=== PATIENT | female | born 1975 | race Caucasian/White ===

== ENCOUNTER 2023-12-22 19:18 | Emergency (ER) | payer SELFPAY ==
[2023-12-22 19:28] VITALS: BP 106/71
[2023-12-22 19:46] LABS: % Basophils 1.5 % (0-2); % Eosinophils 3.3 % (0-6); % Immature Granulocytes 0.2 % (0-0.5); % Lymphocytes 25.9 % (20.5-51.1); % Monocytes 8.9 % (1.7-9.3); % Neutrophils 60.2 % (42.2-75.2); Absolute Basophils 0.1 10^3/uL (0-0.2); Absolute Eosinophils 0.2 10^3/uL (0-0.7); Absolute Lymphocytes 1.2 10^3/uL (1.2-3.4); Absolute Monocytes 0.4 10^3/uL (0.1-0.6); Absolute Neutrophils 2.8 10^3/uL (1.4-6.5); Hematocrit 35.9 % (37.0-47.0); Hemoglobin 12.6 g/dL (12.0-16.0); Mean Corp Hgb Conc. 35.1 g/dL (33.0-37.0); Mean Corpuscular Hgb 31.6 pg (27.0-31.0); Mean Platelet Volume 9.9 fL (7.4-10.4); Nucleated Red Blood Cells % 0 %; Platelet Count 355 10^3/uL (130-400); Red Blood Cell Count 3.99 10^6/uL (4.20-5.40); Red Cell Dist. Width 12.2 % (11.5-14.5); White Blood Cell Count 4.6 10^3/uL (4.8-10.8)
[2023-12-22 19:59] LABS: ALT (SGPT) 15 U/L (0-35); AST (SGOT) 23 U/L (14-36); Albumin 4.5 g/dl (3.5-5.0); Alkaline Phosphatase 78 U/L (38-126); Blood Urea Nitrogen 17 mg/dl (7-17); Calcium 9.7 mg/dl (8.4-10.2); Carbon Dioxide 26 mmol/L (22-30); Chloride 103 mmol/L (98-107); Glucose 106 mg/dl (70-99); Lipase 90 U/L (23-300); Potassium 4.4 mmol/L (3.5-5.1); Sodium 135 mmol/L (135-145); Total Bilirubin 0.3 mg/dl (0.2-1.3); eGFR > 60.00
[2023-12-22 20:00] LABS: HCG, Serum Qualitative Screen Negative
--- NOTE | 2023-12-22 21:39 | ED.GENMED ---
History of Present Illness
General
Chief Complaint: Abdominal Pain
Time Seen by Provider: 12/22/23 21:09
Travel History
Have you had any contact with someone who has COVID-19?: No
Do you have any symptoms of coronavirus? Fever > 100 degrees, chills, cough, shortness of breath, sore throat, loss of taste or smell, muscle aches, or headache?: No
History of Present Illness
History of Present Illness:
48-year-old female with no significant past medical history presents to the emergency department for evaluation of intermittent left lower quadrant abdominal pain for the past 2 weeks. Pain radiated toward the back. States that incidentally began
after chiropractic visit 2 weeks ago, had occasional mild abdominal pains over the past several weeks but nothing as severe as today. Denies any nausea, vomiting, diarrhea, lower urinary tract voiding symptoms, or fevers. Did have night sweats on
several occasions this week. No history of intra-abdominal surgeries
Past History
Past History
ED Past Medical History: None
ED Past Surgical History: None
Social History
Tobacco: Former smoker
Alcohol: None
Drug: None
Living: with family
Review of Systems
Review of Systems
Allergies reviewed?: Yes
All Other Systems: ROS reviewed and negative except as documented in HPI and ROS
Phy Exam
Physical Exam
Physical Exam:
GEN: Well appearing, NAD, WDWN
Eyes: PERRLA, EOMs intact, no scleral icterus
HENT: NCAT, oral mucosa moist
Lungs: CTAB, no wheezes, rales, rhonchi, normal chest wall excursion
Cardiac: RRR, no M/R/G, no peripheral edema. Radial pulses 2+ bilat
Abdomen: S, NT, ND, NABS, no masses or hepatosplenomegaly
Neuro: AO x 3
MSK: No gross deformity or ecchymosis.
Skin: No rashes, petechiae. Normal color, no pallor or jaundice.
Psych: Calm, cooperative, proper hygiene
Course
Orders/Labs/Results
Orders:
Orders
12/22/23 19:32
Test Result ONCE
12/22/23 19:39
Comprehensive Metabolic Panel Urgent
HCG, Serum Qualitative Screen Urgent
Lipase Urgent
12/22/23 19:40
Complete Blood Count/With Diff Urgent
12/22/23 21:34
Urinalysis Reflex To Culture Urgent
Date Specimen was Collected: 12/22/23
Time Specimen was Collected: 21:32
Urine Microscopic Reflex Cult Urgent
12/22/23 22:07
CT Abd/pel Without Iv Or Oral Urgent
Comment:
Reason For Exam: L flank pain, hematuria
Abnormal Lab Results
12/22/23 12/22/23 12/22/23
19:39 19:40 21:34
WBC 4.6 L 10^3/uL
(4.8-10.8)
RBC 3.99 L 10^6/uL
(4.20-5.40)
Hct 35.9 L %
(37.0-47.0)
MCH 31.6 H pg
(27.0-31.0)
Creatinine 1.1 H mg/dL
(0.6-1.0)
Glucose 106 H mg/dl
(70-99)
Ur Occult Blood Reflex 2+ A
(Negative)
Leukocyte Esterase Rfl Trace A
(Negative)
Urine Bacteria (Reflex) Few A
(Negative)
12/22/23 19:40
12/22/23 19:39
Vital Signs
Initial and Last Documented VS:
Initial Vital Signs
Temp Pulse Resp BP Pulse Ox
97.9 F 67 14 106/71 100
12/22/23 19:28 12/22/23 19:28 12/22/23 19:28 12/22/23 19:28 12/22/23 19:28
Last Documented Vital Signs
Temp Pulse Resp BP Pulse Ox
98.5 F 65 18 114/76 98
12/23/23 00:09 12/23/23 00:09 12/23/23 00:09 12/23/23 00:09 12/23/23 00:09
MDM/Problems Addressed
MDM/Problems Addressed:
Unfortunately the patient is identified to have innumerable sites of lymphadenopathy within the abdomen. Her abdominal pain in all likelihood is due to the large para-aortic node on the left side. She does have some systemic signs with night
sweats however has no significant lab abnormalities. I discussed the case with hematology and oncology to facilitate her outpatient follow-up, will likely need further workup and biopsies for more definitive care. Complicating matters is that she
does not have a primary care physician, recommend she contact her insurance company but may also try the outpatient family medicine residency
*Critical Care Note
Total Time (30-74mins, 75-104mins- exclusive of procedures): Not Applicable
ED Attending Note
-
Portions of this chart may have been created with voice recognition software.� Occasional wrong word or��sound alike� substitutions may have occurred due to the inherent limitations of voice recognition software.
Discharge Plan
Departure
Patient Disposition: Home (Routine Discharge)
Date of Disposition: 12/22/23
Time of Disposition: 23:58
Patient with high blood pressure during this ER visit?: No
Discharge Problem:
Intra-abdominal lymphadenopathy
Prescriptions:
No Action
No Current Medications
0
Referrals:
Rob Siddiqi, [Active] -
NONE,* [Family Provider] -
Activity Restrictions/Additional Instructions:
Your CT scan shows numerous enlarged intra-abdominal lymph nodes the largest of which is to the left side of your aorta and may explain your pain. These findings are highly concerning for lymphoma. He will need to follow-up with the electronic game developer
listed on your paperwork as well as with the listed family medicine residency clinic or a primary care physician of your choice. He will likely need further diagnostic tests that are not limited to further blood work or potentially biopsies. It
was also identified that you have a large lesion in the right lung that may represent a benign lesion such as a lipoma or a cancerous lesion. This will also require further workup
[facility]
[address]
[place] [address]
[phone]
Interventions
Interventions:
*Risk Screen - Suicide Last Done: 12/22/23 19:28
*General Assessment Last Done: 12/22/23 19:28
*Neglect/Abuse Screening Last Done: 12/22/23 19:28
ED- Fall Risk Assessment Last Done: 12/22/23 21:28
*Nursing Disposition Last Done: 12/23/23 00:13
NE-Ryethr-Akpmbrgwxl Assessment Last Done: 12/22/23 21:28
Discharge Date and Time
Discharge Date/Time: 12/23/23 00:13
Print Language: WELSH
[2023-12-22 21:44] LABS: Urine Albumin Negative (Neg - Trace); Urine Bilirubin Negative (Negative); Urine Character Clear (Clear); Urine Color Yellow; Urine Glucose Negative (Negative); Urine Ketone Negative (Negative); Urine Leukocyte Trace (Negative); Urine Nitrite Negative (Negative); Urine Occult Blood 2+ (Negative); Urine Urobilinogen Negative (Neg - 1+); Urine pH 6.5 (5.0-9.0)
[2023-12-22 21:54] LABS: Urine Bacteria Few (Negative); Urine Red Blood Cell None Seen /HPF (0-2); Urine White Cell 0-2 /HPF (0-5)
[2023-12-23 00:09] VITALS: BP 114/76
== END 2023-12-23 00:13 | disposition home or self-care (01) ==
LOC: EMR 19:18
PROVIDERS: Emergency Medicine; Physician Assistant; EMERGENCY PHYSICIAN Emergency Medicine
DX: R59.0 Localized enlarged lymph nodes (principal); Z87.891 Personal history of nicotine dependence
CPT/HCPCS: 99284; 74176; 80053; 81003; 81015; 83690; 84703; 85025

== ENCOUNTER → 2024-02-19 10:09 | Outpatient (REF) | payer SELFPAY | LOC: RCS 10:09 | PROVIDERS: ATTENDING PHYSICIAN Internal Medicine Hematology & Oncology | DX: R59.1 Generalized enlarged lymph nodes (principal); C83.38 Diffuse large B-cell lymphoma, lymph nodes of multiple sites | CPT/HCPCS: 93306 ==

== ENCOUNTER → 2024-02-21 07:22 | Outpatient (REF) | payer SELFPAY ==
[2024-02-21 07:49] VITALS: BP 107/79; BP_SYST 89
[2024-02-21 09:18] VITALS: BP 103/75; BP_SYST 73
== END ==
LOC: RADI 07:22
PROVIDERS: ATTENDING PHYSICIAN Internal Medicine Hematology & Oncology
DX: C83.31 Diffuse large B-cell lymphoma, lymph nodes of head, face, and neck (principal)
CPT/HCPCS: 88305; 38505; 76942; 88333; 88341; 88342; 88365; 99152

== ENCOUNTER → 2024-02-27 08:29 | Outpatient (REF) | payer SELFPAY ==
[2024-02-27 08:51] VITALS: BP 129/85; BP_SYST 85
[2024-02-27] MEDS: ANCEF 10 IV (09:17)
[2024-02-27 10:25] VITALS: BP 131/80; BP_SYST 94
[2024-02-27 10:30] VITALS: BP 127/81; BP_SYST 77
[2024-02-27 10:45] VITALS: BP 132/90; BP_SYST 82
[2024-02-27 10:55] VITALS: BP 132/90
== END ==
LOC: RADI 08:29
PROVIDERS: ATTENDING PHYSICIAN Internal Medicine Hematology & Oncology
DX: C83.38 Diffuse large B-cell lymphoma, lymph nodes of multiple sites (principal)
CPT/HCPCS: 36561; 76937; 77001; 99152; 99153; C1788

== ENCOUNTER 2024-03-20 08:49 | Outpatient (RCR) | payer SELFPAY ==
[2024-02-26 11:18] LABS: % Basophils 0.4 % (0-2); % Eosinophils 0.7 % (0-6); % Immature Granulocytes 2.2 % (0-0.5); % Lymphocytes 12.4 % (20.5-51.1); % Monocytes 6.3 % (1.7-9.3); Absolute Eosinophils 0.1 10^3/uL (0-0.7); Absolute Immature Granulocytes 0.2 10^3/uL (0-0.05); Absolute Lymphocytes 1.3 10^3/uL (1.2-3.4); Absolute Monocytes 0.7 10^3/uL (0.1-0.6); Absolute Neutrophils 8.1 10^3/uL (1.4-6.5); Hematocrit 33.4 % (37.0-47.0); Hemoglobin 10.8 g/dL (12.0-16.0); Mean Corp Hgb Conc. 32.3 g/dL (33.0-37.0); Mean Corpuscular Hgb 29.2 pg (27.0-31.0); Mean Corpuscular Volume 90.3 fL (81.0-99.0); Nucleated Red Blood Cells % 0 %; Platelet Count 597 10^3/uL (130-400); Red Cell Dist. Width 14.7 % (11.5-14.5); White Blood Cell Count 10.3 10^3/uL (4.8-10.8)
[2024-02-26 11:25] LABS: ALT (SGPT) 15 U/L (0-35); AST (SGOT) 17 U/L (14-36); Albumin 4.1 g/dl (3.5-5.0); Alkaline Phosphatase 96 U/L (38-126); Blood Urea Nitrogen 23 mg/dl (7-17); Calcium 9.7 mg/dl (8.4-10.2); Carbon Dioxide 29 mmol/L (22-30); Chloride 99 mmol/L (98-107); Glucose 85 mg/dl (70-99); LDH 226 U/L (120-246); Phosphorus 3.8 mg/dl (2.5-4.5); Potassium 3.9 mmol/L (3.5-5.1); Sodium 138 mmol/L (135-145); Total Bilirubin 0.3 mg/dl (0.2-1.3); Total Protein 6.6 g/dl (6.3-8.2); Uric Acid 1.8 mg/dl (2.5-6.2); eGFR > 60.00
[2024-02-28] VITALS (11 sets, daily range): BP systolic 101–120; BP diastolic 61–74; BMI 20.4
[2024-02-28] MEDS: NSS 500 IV (08:15)
[2024-02-28] MEDS: EMEND 150 MG IV (08:15)
[2024-02-28] MEDS: ALOXI 5 MG IV (08:55)
[2024-02-28] MEDS: DECADRON 51 MG IV (08:56)
[2024-02-28] MEDS: ONCOVIN 52 MG IV (09:34)
[2024-02-28] MEDS: ADRIAMYCIN 45 MG IV (09:36)
[2024-02-28] MEDS: CYCLOPHOSPHAMIDE 256.75 MG IV (10:08)
[2024-02-28] MEDS: TYLENOL 1000 MG PO (11:34)
[2024-02-28] MEDS: BENADRYL 50.5 MG IV (11:34)
[2024-02-28] MEDS: RUXIENCE 317.5 MG IV ×2 (11:59)
--- NOTE | 2024-02-28 14:31 | PTCARENOTE ---
Addendum entered by Danni Parikh RN 02/29/24 14:11:
Late entry note:
02/28/24 1625 Pt completed Rituxan infusion without further incidence. Tolerated well. Discharged in good condition with written and verbal instructions.
Addendum entered by Danni Parikh RN 02/28/24 14:57:
1435-Spoke to Dr. Tubbs, Order obtained for IV Benadryl and IV Pepcid.
1450-Pt stated. 'symptoms resolving ' with NSS flush. Benadryl 25mg given IV push as directed along with Pepcid 20mg IV push. Will continue to monitor patient.
Original Note:
Pt receiving Rituxan Approximately 284mg infused , patient c/o'itching in ears and slightly hoarness of throat ' VS98.1 hr 90 rsp 16 BP 101/65. pt denies any shortness of breath. [place] text and call placed to Dr. Tubbs for further directions.
Rituxan turned off and NSS infusing. Awaiting call back.
[2024-02-28] MEDS: PEPCID 10 MG IV (14:48)
[2024-02-28] MEDS: BENADRYL 0.5 MG IV (14:48)
[2024-02-28] MEDS: PEPCID 10 ML IV (14:48)
[2024-02-29 14:15] VITALS: BP 121/66
[2024-02-29] MEDS: FULPHILA 6 MG SC (14:28)
--- NOTE | 2024-02-29 15:24 | PTCARENOTE ---
1415-Pt arrived for Fulphila injection. Swelling noted at upper incision site of right sub-q port. Pt denies any shortness of breath. Port was placed by interventional radiology on02/27/24. Port was used yesterday for chemotherapy treatment, accessed
per protocol, excellent blood return noted through out treatment. Port was flushed and de-accessed at end of treatment per protocol and no swelling was noted at time of discharge 02/28/24.
Interventional radiology was notified and pictures sent via tiger text to Nieves KIM.
Pt is to see Dr. Tubbs at 1445 today and was also notified of swelling via tiger text.
Pt is to go to interventional radiology after physician visit today.
[2024-03-06 10:15] LABS: % Basophils 0.4 % (0-2); % Eosinophils 7.1 % (0-6); % Immature Granulocytes 1.1 % (0-0.5); % Lymphocytes 22.6 % (20.5-51.1); % Monocytes 5.3 % (1.7-9.3); % Neutrophils 63.5 % (42.2-75.2); Absolute Eosinophils 0.2 10^3/uL (0-0.7); Absolute Lymphocytes 0.6 10^3/uL (1.2-3.4); Absolute Monocytes 0.1 10^3/uL (0.1-0.6); Absolute Neutrophils 1.7 10^3/uL (1.4-6.5); Hematocrit 34.6 % (37.0-47.0); Hemoglobin 11.2 g/dL (12.0-16.0); Mean Corp Hgb Conc. 32.4 g/dL (33.0-37.0); Mean Corpuscular Hgb 29.6 pg (27.0-31.0); Mean Corpuscular Volume 91.3 fL (81.0-99.0); Mean Platelet Volume 9.2 fL (7.4-10.4); Platelet Count 310 10^3/uL (130-400); Red Blood Cell Count 3.79 10^6/uL (4.20-5.40); Red Cell Dist. Width 15.7 % (11.5-14.5); White Blood Cell Count 2.7 10^3/uL (4.8-10.8)
[2024-03-06 11:03] LABS: ALT (SGPT) 11 U/L (0-35); AST (SGOT) 15 U/L (14-36); Albumin 4.4 g/dl (3.5-5.0); Alkaline Phosphatase 91 U/L (38-126); Blood Urea Nitrogen 18 mg/dl (7-17); Calcium 9.5 mg/dl (8.4-10.2); Carbon Dioxide 25 mmol/L (22-30); Chloride 102 mmol/L (98-107); Estimated Creatinine Clearance 97 ml/min; Glucose 100 mg/dl (70-99); Phosphorus 3.4 mg/dl (2.5-4.5); Potassium 5.4 mmol/L (3.5-5.1); Sodium 137 mmol/L (135-145); Total Bilirubin 0.5 mg/dl (0.2-1.3); Total Protein 6.7 g/dl (6.3-8.2); eGFR > 60.00
[2024-03-06 11:40] LABS: Uric Acid 1.8 mg/dl (2.5-6.2)
[2024-03-06 11:43] LABS: LDH 181 U/L (120-246)
[2024-03-13 10:21] LABS: % Basophils 1.4 % (0-2); % Eosinophils 0.9 % (0-6); % Immature Granulocytes 6.5 % (0-0.5); % Lymphocytes 13.5 % (20.5-51.1); % Monocytes 5.4 % (1.7-9.3); % Neutrophils 72.3 % (42.2-75.2); Absolute Basophils 0.1 10^3/uL (0-0.2); Absolute Eosinophils 0.1 10^3/uL (0-0.7); Absolute Immature Granulocytes 0.4 10^3/uL (0-0.05); Absolute Lymphocytes 0.9 10^3/uL (1.2-3.4); Absolute Monocytes 0.4 10^3/uL (0.1-0.6); Absolute Neutrophils 4.8 10^3/uL (1.4-6.5); Hematocrit 36.8 % (37.0-47.0); Hemoglobin 11.8 g/dL (12.0-16.0); Mean Corp Hgb Conc. 32.1 g/dL (33.0-37.0); Mean Corpuscular Hgb 29.6 pg (27.0-31.0); Mean Corpuscular Volume 92.5 fL (81.0-99.0); Mean Platelet Volume 9.7 fL (7.4-10.4); Platelet Count 206 10^3/uL (130-400); Red Blood Cell Count 3.98 10^6/uL (4.20-5.40); Red Cell Dist. Width 18.1 % (11.5-14.5); White Blood Cell Count 6.7 10^3/uL (4.8-10.8)
[2024-03-13 12:26] LABS: ALT (SGPT) 36 U/L (0-35); AST (SGOT) 41 U/L (14-36); Albumin 4.9 g/dl (3.5-5.0); Alkaline Phosphatase 100 U/L (38-126); Blood Urea Nitrogen 21 mg/dl (7-17); Calcium 10.1 mg/dl (8.4-10.2); Carbon Dioxide 25 mmol/L (22-30); Chloride 103 mmol/L (98-107); Estimated Creatinine Clearance 85 ml/min; Glucose 94 mg/dl (70-99); LDH 278 U/L (120-246); Phosphorus 4.6 mg/dl (2.5-4.5); Sodium 139 mmol/L (135-145); Total Bilirubin 0.4 mg/dl (0.2-1.3); Total Protein 7.5 g/dl (6.3-8.2); Uric Acid 3.4 mg/dl (2.5-6.2); eGFR > 60.00
[2024-03-19 10:28] LABS: % Basophils 1.5 % (0-2); % Eosinophils 1.7 % (0-6); % Immature Granulocytes 0.4 % (0-0.5); % Lymphocytes 17.2 % (20.5-51.1); % Monocytes 8.1 % (1.7-9.3); % Neutrophils 71.1 % (42.2-75.2); Absolute Basophils 0.1 10^3/uL (0-0.2); Absolute Eosinophils 0.1 10^3/uL (0-0.7); Absolute Lymphocytes 0.9 10^3/uL (1.2-3.4); Absolute Monocytes 0.4 10^3/uL (0.1-0.6); Absolute Neutrophils 3.7 10^3/uL (1.4-6.5); Hematocrit 32.1 % (37.0-47.0); Hemoglobin 10.5 g/dL (12.0-16.0); Mean Corp Hgb Conc. 32.7 g/dL (33.0-37.0); Mean Corpuscular Volume 91.7 fL (81.0-99.0); Mean Platelet Volume 9.4 fL (7.4-10.4); Platelet Count 379 10^3/uL (130-400); Red Cell Dist. Width 18.4 % (11.5-14.5); White Blood Cell Count 5.2 10^3/uL (4.8-10.8)
[2024-03-19 12:06] LABS: ALT (SGPT) 26 U/L (0-35); AST (SGOT) 29 U/L (14-36); Albumin 4.6 g/dl (3.5-5.0); Alkaline Phosphatase 74 U/L (38-126); Blood Urea Nitrogen 22 mg/dl (7-17); Calcium 9.8 mg/dl (8.4-10.2); Carbon Dioxide 24 mmol/L (22-30); Chloride 104 mmol/L (98-107); Estimated Creatinine Clearance 85 ml/min; Glucose 86 mg/dl (70-99); LDH 230 U/L (120-246); Phosphorus 4.2 mg/dl (2.5-4.5); Potassium 4.7 mmol/L (3.5-5.1); Sodium 137 mmol/L (135-145); Total Bilirubin 0.4 mg/dl (0.2-1.3); Total Protein 6.9 g/dl (6.3-8.2); Uric Acid 2.3 mg/dl (2.5-6.2); eGFR > 60.00
[2024-03-20] MEDS: NSS 500 IV (09:25)
[2024-03-20] MEDS: EMEND 150 MG IV (09:26)
[2024-03-20] MEDS: ALOXI 5 MG IV (09:26)
[2024-03-20 09:34] VITALS: BP 105/67; BMI 21.2
[2024-03-20] MEDS: DECADRON 51 MG IV (10:09)
[2024-03-20] MEDS: ADRIAMYCIN 45 MG IV (11:11)
[2024-03-20] MEDS: ONCOVIN 52 MG IV (11:11)
[2024-03-20] MEDS: CYCLOPHOSPHAMIDE 256.75 MG IV (11:38)
[2024-03-20] MEDS: TYLENOL 1000 MG PO (12:58)
[2024-03-20] MEDS: BENADRYL 50.5 MG IV (12:59)
[2024-03-20] MEDS: [UNRECOGNIZED DRUG - OTHER] 11.7 MG SC (13:44)
== END 2024-03-20 23:59 | disposition home or self-care (01) ==
LOC: OID 08:49
PROVIDERS: ATTENDING PHYSICIAN Internal Medicine Hematology & Oncology
DX: R59.1 Generalized enlarged lymph nodes (principal); R93.5 Abnormal findings on diagnostic imaging of other abdominal regions, including retroperitoneum; C83.38 Diffuse large B-cell lymphoma, lymph nodes of multiple sites
CPT/HCPCS: 36415; 80053; 83615; 84100; 84550; 85025; 96361; 96367; 96372; 96374; 96375; 96376; 96401; 96409; 96411; 96413; 96415; 96417; J1453; J2469; J9073; J9311; Q5108; Q5119

== ENCOUNTER 2024-04-17 09:56 | Outpatient (RCR) | payer SELFPAY ==
[2024-03-21 14:24] VITALS: BP 106/59
[2024-03-21] MEDS: FULPHILA 6 MG SC (14:30)
[2024-03-27 10:07] LABS: % Basophils 0.7 % (0-2); % Eosinophils 4.2 % (0-6); % Immature Granulocytes 0.9 % (0-0.5); % Lymphocytes 21.2 % (20.5-51.1); % Monocytes 7.7 % (1.7-9.3); % Neutrophils 65.3 % (42.2-75.2); Absolute Eosinophils 0.2 10^3/uL (0-0.7); Absolute Lymphocytes 0.9 10^3/uL (1.2-3.4); Absolute Monocytes 0.3 10^3/uL (0.1-0.6); Absolute Neutrophils 2.8 10^3/uL (1.4-6.5); Hematocrit 31.5 % (37.0-47.0); Hemoglobin 10.4 g/dL (12.0-16.0); Mean Corpuscular Hgb 30.5 pg (27.0-31.0); Mean Corpuscular Volume 92.4 fL (81.0-99.0); Mean Platelet Volume 9.3 fL (7.4-10.4); Platelet Count 318 10^3/uL (130-400); Red Blood Cell Count 3.41 10^6/uL (4.20-5.40); Red Cell Dist. Width 19.1 % (11.5-14.5); White Blood Cell Count 4.3 10^3/uL (4.8-10.8)
[2024-04-03 10:14] LABS: % Basophils 1.4 % (0-2); % Eosinophils 0.8 % (0-6); % Immature Granulocytes 6.1 % (0-0.5); % Lymphocytes 10.4 % (20.5-51.1); % Monocytes 6.1 % (1.7-9.3); % Neutrophils 75.2 % (42.2-75.2); Absolute Basophils 0.1 10^3/uL (0-0.2); Absolute Eosinophils 0.1 10^3/uL (0-0.7); Absolute Immature Granulocytes 0.6 10^3/uL (0-0.05); Absolute Lymphocytes 1.1 10^3/uL (1.2-3.4); Absolute Monocytes 0.6 10^3/uL (0.1-0.6); Absolute Neutrophils 7.7 10^3/uL (1.4-6.5); Hematocrit 32.4 % (37.0-47.0); Hemoglobin 10.5 g/dL (12.0-16.0); Mean Corp Hgb Conc. 32.4 g/dL (33.0-37.0); Mean Corpuscular Hgb 30.5 pg (27.0-31.0); Mean Corpuscular Volume 94.2 fL (81.0-99.0); Mean Platelet Volume 9.9 fL (7.4-10.4); Platelet Count 213 10^3/uL (130-400); Red Blood Cell Count 3.44 10^6/uL (4.20-5.40); Red Cell Dist. Width 20.6 % (11.5-14.5); White Blood Cell Count 10.2 10^3/uL (4.8-10.8)
[2024-04-03 11:51] LABS: ALT (SGPT) 21 U/L (0-35); AST (SGOT) 27 U/L (14-36); Albumin 4.7 g/dl (3.5-5.0); Alkaline Phosphatase 84 U/L (38-126); Blood Urea Nitrogen 22 mg/dl (7-17); Calcium 9.6 mg/dl (8.4-10.2); Carbon Dioxide 23 mmol/L (22-30); Chloride 106 mmol/L (98-107); Glucose 97 mg/dl (70-99); LDH 232 U/L (120-246); Potassium 4.6 mmol/L (3.5-5.1); Sodium 137 mmol/L (135-145); Total Bilirubin 0.3 mg/dl (0.2-1.3); Total Protein 6.9 g/dl (6.3-8.2); eGFR > 60.00
[2024-04-09 10:49] LABS: % Basophils 0.3 % (0-2); % Eosinophils 0.1 % (0-6); % Immature Granulocytes 0.3 % (0-0.5); % Lymphocytes 1.1 % (20.5-51.1); % Monocytes 2.8 % (1.7-9.3); % Neutrophils 95.4 % (42.2-75.2); Absolute Lymphocytes 0.1 10^3/uL (1.2-3.4); Absolute Monocytes 0.3 10^3/uL (0.1-0.6); Absolute Neutrophils 10.7 10^3/uL (1.4-6.5); Hematocrit 32.9 % (37.0-47.0); Hemoglobin 10.8 g/dL (12.0-16.0); Mean Corp Hgb Conc. 32.8 g/dL (33.0-37.0); Mean Corpuscular Hgb 30.9 pg (27.0-31.0); Mean Corpuscular Volume 94.3 fL (81.0-99.0); Mean Platelet Volume 9.8 fL (7.4-10.4); Platelet Count 306 10^3/uL (130-400); Red Blood Cell Count 3.49 10^6/uL (4.20-5.40); Red Cell Dist. Width 21.6 % (11.5-14.5); White Blood Cell Count 11.2 10^3/uL (4.8-10.8)
[2024-04-09 12:20] LABS: ALT (SGPT) 21 U/L (0-35); AST (SGOT) 28 U/L (14-36); Albumin 4.8 g/dl (3.5-5.0); Alkaline Phosphatase 68 U/L (38-126); Blood Urea Nitrogen 25 mg/dl (7-17); Calcium 9.6 mg/dl (8.4-10.2); Carbon Dioxide 21 mmol/L (22-30); Chloride 101 mmol/L (98-107); Glucose 96 mg/dl (70-99); LDH 211 U/L (120-246); Phosphorus 3.6 mg/dl (2.5-4.5); Potassium 5.2 mmol/L (3.5-5.1); Sodium 133 mmol/L (135-145); Total Bilirubin 0.5 mg/dl (0.2-1.3); Total Protein 6.8 g/dl (6.3-8.2); eGFR > 60.00
[2024-04-10] MEDS: NSS 500 IV (10:33)
[2024-04-10] MEDS: EMEND 150 MG IV (10:33)
[2024-04-10 10:39] VITALS: BP 95/66
[2024-04-10] MEDS: DECADRON 51 MG IV (11:13)
[2024-04-10] MEDS: ALOXI 5 MG IV (11:40)
[2024-04-10] MEDS: ONCOVIN 52 MG IV (11:50)
[2024-04-10] MEDS: ADRIAMYCIN 45 MG IV (11:52)
[2024-04-10] MEDS: CYCLOPHOSPHAMIDE 256.75 MG IV (12:17)
[2024-04-10] MEDS: TYLENOL 1000 MG PO (13:30)
[2024-04-10] MEDS: BENADRYL 50.5 MG IV (13:31)
[2024-04-10] MEDS: [UNRECOGNIZED DRUG - OTHER] 11.7 MG SC (14:20)
[2024-04-11 14:49] VITALS: BP 115/68
[2024-04-11] MEDS: FULPHILA 6 MG SC (14:55)
[2024-04-17 10:40] VITALS: BP 92/67
[2024-04-17 10:45] VITALS: BP 87/55
[2024-04-17] MEDS: NSS 1000 IV (11:09)
--- NOTE | 2024-04-17 11:17 | PTCARENOTE ---
Addendum entered by Danni Parikh RN 04/17/24 14:01:
1155- Critical value WBC 1.2 and ANC 0.6 reported to Hien Dotson CLAIM TAKER via tiger text.
Neutropenic precaution reviewed, written information provided.
1250 IV hydration complete . Pt states 'feeling better' sitting BP 92/61 HR 687, standing BP 90/60 HR 83.
Pt discharged in good condition. Instructed to call [facility] for any worsening symptoms.
Original Note:
1030- Pt came in today for routine lab work. Pt c/o diarrhea multiple times 'gema, bloom' , denies blood in stool, after eating in addition to gas pains. Pt c/o dizziness with standing, fatigue. Pt BP sitting 92/57 HR 85. Orthostatic BP 87/55 HR
100. Pt id afebrile. Pt states she is trying BRAT diet. Has only taken Imodium once daily. Will review increase use of Imodium with loose stools.
Hien Dotson CLAIM TAKER notified via tiger text.
Labs drawn as ordered. Pt receiving IV NSS as directed.
[2024-04-17 11:34] LABS: ALT (SGPT) 106 U/L (0-35); AST (SGOT) 50 U/L (14-36); Albumin 4.2 g/dl (3.5-5.0); Alkaline Phosphatase 89 U/L (38-126); Blood Urea Nitrogen 15 mg/dl (7-17); Calcium 9.3 mg/dl (8.4-10.2); Carbon Dioxide 23 mmol/L (22-30); Chloride 104 mmol/L (98-107); Glucose 92 mg/dl (70-99); Sodium 139 mmol/L (135-145); Total Bilirubin 0.6 mg/dl (0.2-1.3); Total Protein 6.1 g/dl (6.3-8.2); eGFR > 60.00
[2024-04-17 11:59] LABS: % Basophils 1.6 % (0-2); % Eosinophils 10.5 % (0-6); % Immature Granulocytes 3.2 % (0-0.5); % Monocytes 9.7 % (1.7-9.3); Absolute Eosinophils 0.1 10^3/uL (0-0.7); Absolute Lymphocytes 0.3 10^3/uL (1.2-3.4); Absolute Monocytes 0.1 10^3/uL (0.1-0.6); Absolute Neutrophils 0.6 10^3/uL (1.4-6.5); Hematocrit 27.9 % (37.0-47.0); Hemoglobin 9.6 g/dL (12.0-16.0); Mean Corp Hgb Conc. 34.4 g/dL (33.0-37.0); Mean Corpuscular Hgb 31.8 pg (27.0-31.0); Mean Corpuscular Volume 92.4 fL (81.0-99.0); Mean Platelet Volume 10.1 fL (7.4-10.4); Nucleated Red Blood Cells % 0 %; Platelet Count 216 10^3/uL (130-400); Red Blood Cell Count 3.02 10^6/uL (4.20-5.40); Red Cell Dist. Width 19.9 % (11.5-14.5); White Blood Cell Count 1.2 10^3/uL (4.8-10.8)
[2024-04-17 12:48] VITALS: BP 92/61
[2024-04-17 12:50] VITALS: BP 90/60
[2024-04-17 16:15] LABS: LDH 185 U/L (120-246); Phosphorus 3.1 mg/dl (2.5-4.5); Uric Acid 6.3 mg/dl (2.5-6.2)
== END 2024-04-20 23:59 | disposition home or self-care (01) ==
LOC: OID 09:56
PROVIDERS: ATTENDING PHYSICIAN Internal Medicine Hematology & Oncology
DX: Z51.11 Encounter for antineoplastic chemotherapy (principal); R59.1 Generalized enlarged lymph nodes (principal); C83.38 Diffuse large B-cell lymphoma, lymph nodes of multiple sites; R93.5 Abnormal findings on diagnostic imaging of other abdominal regions, including retroperitoneum; R11.2 Nausea with vomiting, unspecified; M54.50 Low back pain, unspecified
CPT/HCPCS: 36415; 80053; 83615; 84100; 84550; 85025; 96360; 96361; 96365; 96367; 96372; 96375; 96401; 96411; 96413; J1453; J2469; J9073; J9311; Q5108

== ENCOUNTER 2024-05-15 09:58 | Outpatient (RCR) | payer SELFPAY ==
[2024-04-24 10:04] LABS: % Basophils 0.8 % (0-2); % Eosinophils 0.8 % (0-6); % Lymphocytes 6.5 % (20.5-51.1); % Monocytes 7.6 % (1.7-9.3); % Neutrophils 79.3 % (42.2-75.2); Absolute Basophils 0.1 10^3/uL (0-0.2); Absolute Eosinophils 0.1 10^3/uL (0-0.7); Absolute Immature Granulocytes 0.4 10^3/uL (0-0.05); Absolute Lymphocytes 0.5 10^3/uL (1.2-3.4); Absolute Monocytes 0.6 10^3/uL (0.1-0.6); Absolute Neutrophils 6.6 10^3/uL (1.4-6.5); Hematocrit 33.7 % (37.0-47.0); Mean Corp Hgb Conc. 32.6 g/dL (33.0-37.0); Mean Corpuscular Hgb 31.6 pg (27.0-31.0); Mean Corpuscular Volume 96.8 fL (81.0-99.0); Mean Platelet Volume 9.8 fL (7.4-10.4); Platelet Count 311 10^3/uL (130-400); Red Blood Cell Count 3.48 10^6/uL (4.20-5.40); Red Cell Dist. Width 20.8 % (11.5-14.5); White Blood Cell Count 8.3 10^3/uL (4.8-10.8)
[2024-04-24 12:58] LABS: ALT (SGPT) 24 U/L (0-35); AST (SGOT) 20 U/L (14-36); Albumin 4.6 g/dl (3.5-5.0); Alkaline Phosphatase 98 U/L (38-126); Blood Urea Nitrogen 15 mg/dl (7-17); Calcium 9.7 mg/dl (8.4-10.2); Carbon Dioxide 25 mmol/L (22-30); Chloride 101 mmol/L (98-107); Glucose 113 mg/dl (70-99); LDH 193 U/L (120-246); Potassium 4.9 mmol/L (3.5-5.1); Sodium 140 mmol/L (135-145); Total Bilirubin 0.4 mg/dl (0.2-1.3); Total Protein 6.8 g/dl (6.3-8.2); Uric Acid 6.7 mg/dl (2.5-6.2); eGFR > 60.00
[2024-04-30 10:07] LABS: % Basophils 0.7 % (0-2); % Eosinophils 0.4 % (0-6); % Immature Granulocytes 0.4 % (0-0.5); % Lymphocytes 6.5 % (20.5-51.1); % Monocytes 6.5 % (1.7-9.3); % Neutrophils 85.5 % (42.2-75.2); Absolute Basophils 0.1 10^3/uL (0-0.2); Absolute Lymphocytes 0.5 10^3/uL (1.2-3.4); Absolute Monocytes 0.5 10^3/uL (0.1-0.6); Absolute Neutrophils 6.9 10^3/uL (1.4-6.5); Hematocrit 31.4 % (37.0-47.0); Hemoglobin 10.1 g/dL (12.0-16.0); Mean Corp Hgb Conc. 32.2 g/dL (33.0-37.0); Mean Corpuscular Hgb 31.6 pg (27.0-31.0); Mean Corpuscular Volume 98.1 fL (81.0-99.0); Mean Platelet Volume 9.5 fL (7.4-10.4); Platelet Count 467 10^3/uL (130-400); Red Cell Dist. Width 20.1 % (11.5-14.5); White Blood Cell Count 8.1 10^3/uL (4.8-10.8)
[2024-04-30 11:18] LABS: ALT (SGPT) 26 U/L (0-35); AST (SGOT) 31 U/L (14-36); Albumin 4.4 g/dl (3.5-5.0); Alkaline Phosphatase 67 U/L (38-126); Blood Urea Nitrogen 26 mg/dl (7-17); Calcium 9.8 mg/dl (8.4-10.2); Carbon Dioxide 24 mmol/L (22-30); Chloride 104 mmol/L (98-107); Glucose 93 mg/dl (70-99); LDH 183 U/L (120-246); Phosphorus 4.3 mg/dl (2.5-4.5); Potassium 5.5 mmol/L (3.5-5.1); Sodium 140 mmol/L (135-145); Total Bilirubin 0.3 mg/dl (0.2-1.3); Total Protein 6.5 g/dl (6.3-8.2); Uric Acid 4.1 mg/dl (2.5-6.2); eGFR > 60.00
[2024-05-01 09:01] VITALS: BP 108/63
[2024-05-01] MEDS: NSS 500 IV (10:54)
[2024-05-01] MEDS: EMEND 150 MG IV (10:55)
[2024-05-01 11:30] LABS: Urine Red Blood Cell 0-2 /HPF (0-2); Urine White Cell 0-2 /HPF (0-5)
[2024-05-01] MEDS: DECADRON 51 MG IV (11:33)
[2024-05-01] MEDS: ALOXI 5 MG IV (11:33)
[2024-05-01] MEDS: ONCOVIN 52 MG IV (12:18)
[2024-05-01] MEDS: ADRIAMYCIN 45 MG IV (12:52)
[2024-05-01] MEDS: CYCLOPHOSPHAMIDE 256.75 MG IV (13:19)
[2024-05-01] MEDS: BENADRYL 50.5 MG IV (14:30)
[2024-05-01] MEDS: TYLENOL 1000 MG PO (14:31)
[2024-05-01] MEDS: [UNRECOGNIZED DRUG - OTHER] 11.7 MG SC (15:22)
[2024-05-02 14:31] VITALS: BP 96/60
[2024-05-02] MEDS: FULPHILA 6 MG SC (14:41)
[2024-05-08 09:20] VITALS: BP 92/63
[2024-05-08] MEDS: NSS 1000 IV (09:47)
[2024-05-08 10:39] LABS: % Basophils 0.3 % (0-2); % Eosinophils 4.4 % (0-6); % Immature Granulocytes 1.8 % (0-0.5); % Lymphocytes 13.5 % (20.5-51.1); % Monocytes 9.7 % (1.7-9.3); % Neutrophils 70.3 % (42.2-75.2); Absolute Eosinophils 0.2 10^3/uL (0-0.7); Absolute Immature Granulocytes 0.1 10^3/uL (0-0.05); Absolute Lymphocytes 0.5 10^3/uL (1.2-3.4); Absolute Monocytes 0.3 10^3/uL (0.1-0.6); Absolute Neutrophils 2.4 10^3/uL (1.4-6.5); Hematocrit 30.2 % (37.0-47.0); Mean Corp Hgb Conc. 33.1 g/dL (33.0-37.0); Mean Corpuscular Hgb 32.2 pg (27.0-31.0); Mean Corpuscular Volume 97.1 fL (81.0-99.0); Mean Platelet Volume 9.6 fL (7.4-10.4); Platelet Count 279 10^3/uL (130-400); Red Blood Cell Count 3.11 10^6/uL (4.20-5.40); Red Cell Dist. Width 18.7 % (11.5-14.5); White Blood Cell Count 3.4 10^3/uL (4.8-10.8)
[2024-05-08 10:44] LABS: ALT (SGPT) 15 U/L (0-35); AST (SGOT) 16 U/L (14-36); Albumin 4.2 g/dl (3.5-5.0); Alkaline Phosphatase 85 U/L (38-126); Blood Urea Nitrogen 20 mg/dl (7-17); Carbon Dioxide 23 mmol/L (22-30); Chloride 101 mmol/L (98-107); Glucose 88 mg/dl (70-99); LDH 161 U/L (120-246); Phosphorus 3.6 mg/dl (2.5-4.5); Potassium 4.8 mmol/L (3.5-5.1); Sodium 139 mmol/L (135-145); Total Bilirubin 0.4 mg/dl (0.2-1.3); Total Protein 6.1 g/dl (6.3-8.2); Uric Acid 5.5 mg/dl (2.5-6.2); eGFR > 60.00
[2024-05-08 10:54] LABS: Calcium 9.5 mg/dl (8.4-10.2)
[2024-05-15 10:22] LABS: % Basophils 0.8 % (0-2); % Eosinophils 1.3 % (0-6); % Immature Granulocytes 3.6 % (0-0.5); % Lymphocytes 6.6 % (20.5-51.1); % Monocytes 6.6 % (1.7-9.3); % Neutrophils 81.1 % (42.2-75.2); Absolute Basophils 0.1 10^3/uL (0-0.2); Absolute Eosinophils 0.1 10^3/uL (0-0.7); Absolute Immature Granulocytes 0.3 10^3/uL (0-0.05); Absolute Lymphocytes 0.5 10^3/uL (1.2-3.4); Absolute Monocytes 0.5 10^3/uL (0.1-0.6); Absolute Neutrophils 6.2 10^3/uL (1.4-6.5); Hematocrit 34.2 % (37.0-47.0); Hemoglobin 11.1 g/dL (12.0-16.0); Mean Corp Hgb Conc. 32.5 g/dL (33.0-37.0); Mean Corpuscular Hgb 32.6 pg (27.0-31.0); Mean Corpuscular Volume 100.3 fL (81.0-99.0); Mean Platelet Volume 10.1 fL (7.4-10.4); Platelet Count 245 10^3/uL (130-400); Red Blood Cell Count 3.41 10^6/uL (4.20-5.40); Red Cell Dist. Width 19.4 % (11.5-14.5); White Blood Cell Count 7.7 10^3/uL (4.8-10.8)
[2024-05-15 12:50] LABS: ALT (SGPT) 21 U/L (0-35); AST (SGOT) 23 U/L (14-36); Albumin 4.8 g/dl (3.5-5.0); Alkaline Phosphatase 84 U/L (38-126); Blood Urea Nitrogen 20 mg/dl (7-17); Calcium 9.7 mg/dl (8.4-10.2); Carbon Dioxide 21 mmol/L (22-30); Chloride 103 mmol/L (98-107); Glucose 86 mg/dl (70-99); LDH 216 U/L (120-246); Phosphorus 4.5 mg/dl (2.5-4.5); Potassium 4.9 mmol/L (3.5-5.1); Sodium 141 mmol/L (135-145); Total Bilirubin 0.2 mg/dl (0.2-1.3); Total Protein 6.8 g/dl (6.3-8.2); Uric Acid 6.3 mg/dl (2.5-6.2); eGFR > 60.00
== END 2024-05-16 13:33 | disposition home or self-care (01) ==
LOC: OID 09:58
PROVIDERS: ATTENDING PHYSICIAN Internal Medicine Hematology & Oncology
DX: C83.30 Diffuse large B-cell lymphoma, unspecified site (principal); C83.38 Diffuse large B-cell lymphoma, lymph nodes of multiple sites (principal); R59.1 Generalized enlarged lymph nodes (principal); Z51.11 Encounter for antineoplastic chemotherapy (principal); C83.33 Diffuse large B-cell lymphoma, intra-abdominal lymph nodes; R93.5 Abnormal findings on diagnostic imaging of other abdominal regions, including retroperitoneum
CPT/HCPCS: 36415; 80053; 81015; 83615; 84100; 84550; 85025; 96360; 96361; 96367; 96372; 96375; 96401; 96409; 96411; 96413; J1453; J2469; J9073; J9311; Q5108

== ENCOUNTER 2024-06-18 13:37 | Outpatient (RCR) | payer SELFPAY ==
[2024-05-21 12:04] LABS: % Basophils 1.4 % (0-2); % Eosinophils 0.5 % (0-6); % Immature Granulocytes 0.5 % (0-0.5); % Lymphocytes 6.5 % (20.5-51.1); % Monocytes 6.7 % (1.7-9.3); % Neutrophils 84.4 % (42.2-75.2); Absolute Basophils 0.1 10^3/uL (0-0.2); Absolute Lymphocytes 0.4 10^3/uL (1.2-3.4); Absolute Monocytes 0.4 10^3/uL (0.1-0.6); Absolute Neutrophils 4.7 10^3/uL (1.4-6.5); Hematocrit 31.5 % (37.0-47.0); Hemoglobin 10.4 g/dL (12.0-16.0); Mean Corpuscular Hgb 33.1 pg (27.0-31.0); Mean Corpuscular Volume 100.3 fL (81.0-99.0); Nucleated Red Blood Cells % 0 %; Platelet Count 322 10^3/uL (130-400); Red Blood Cell Count 3.14 10^6/uL (4.20-5.40); Red Cell Dist. Width 18.4 % (11.5-14.5); White Blood Cell Count 5.5 10^3/uL (4.8-10.8)
[2024-05-21 12:37] LABS: ALT (SGPT) 30 U/L (0-35); AST (SGOT) 33 U/L (14-36); Albumin 4.7 g/dl (3.5-5.0); Alkaline Phosphatase 54 U/L (38-126); Blood Urea Nitrogen 23 mg/dl (7-17); Calcium 9.7 mg/dl (8.4-10.2); Carbon Dioxide 26 mmol/L (22-30); Chloride 104 mmol/L (98-107); Glucose 46 mg/dl (70-99); LDH 202 U/L (120-246); Potassium 4.7 mmol/L (3.5-5.1); Sodium 142 mmol/L (135-145); Total Bilirubin 0.2 mg/dl (0.2-1.3); Total Protein 6.7 g/dl (6.3-8.2); eGFR > 60.00
[2024-05-21 16:27] LABS: Uric Acid 2.8 mg/dl (2.5-6.2)
[2024-05-22] MEDS: EMEND 150 MG IV (08:58)
[2024-05-22] MEDS: NSS 500 IV (08:59)
[2024-05-22 09:20] VITALS: BP 89/61
[2024-05-22] MEDS: ALOXI 5 MG IV (09:42)
[2024-05-22] MEDS: DECADRON 51 MG IV (09:43)
[2024-05-22] MEDS: ADRIAMYCIN 45 MG IV (10:16)
[2024-05-22] MEDS: ONCOVIN 52 MG IV (10:37)
[2024-05-22] MEDS: CYCLOPHOSPHAMIDE 256.75 MG IV (10:55)
[2024-05-22] MEDS: TYLENOL 1000 MG PO (11:58)
[2024-05-22] MEDS: BENADRYL 50.5 MG IV (11:59)
[2024-05-22] MEDS: [UNRECOGNIZED DRUG - OTHER] 11.7 MG SC (12:48)
[2024-05-23 14:47] VITALS: BP 101/68
[2024-05-23 14:52] VITALS: BP 101/68
[2024-05-23] MEDS: FULPHILA 6 MG SC (15:02)
[2024-05-28] MEDS: NSS 1000 IV (14:26)
[2024-05-28 14:32] VITALS: BP 97/50
[2024-05-28 14:33] LABS: % Basophils 0.3 % (0-2); % Eosinophils 1.8 % (0-6); % Immature Granulocytes 0.5 % (0-0.5); % Monocytes 3.1 % (1.7-9.3); % Neutrophils 81.3 % (42.2-75.2); Absolute Eosinophils 0.1 10^3/uL (0-0.7); Absolute Lymphocytes 0.5 10^3/uL (1.2-3.4); Absolute Monocytes 0.1 10^3/uL (0.1-0.6); Absolute Neutrophils 3.1 10^3/uL (1.4-6.5); Hematocrit 29.4 % (37.0-47.0); Hemoglobin 9.7 g/dL (12.0-16.0); Mean Corpuscular Hgb 32.9 pg (27.0-31.0); Mean Corpuscular Volume 99.7 fL (81.0-99.0); Mean Platelet Volume 10.2 fL (7.4-10.4); Platelet Count 237 10^3/uL (130-400); Red Blood Cell Count 2.95 10^6/uL (4.20-5.40); Red Cell Dist. Width 16.4 % (11.5-14.5); White Blood Cell Count 3.9 10^3/uL (4.8-10.8)
[2024-05-28 15:30] VITALS: BP 99/63
[2024-05-28 15:41] LABS: ALT (SGPT) 21 U/L (0-35); AST (SGOT) 18 U/L (14-36); Albumin 4.2 g/dl (3.5-5.0); Alkaline Phosphatase 84 U/L (38-126); Blood Urea Nitrogen 25 mg/dl (7-17); Calcium 9.4 mg/dl (8.4-10.2); Carbon Dioxide 29 mmol/L (22-30); Chloride 98 mmol/L (98-107); Glucose 95 mg/dl (70-99); LDH 184 U/L (120-246); Potassium 4.4 mmol/L (3.5-5.1); Sodium 138 mmol/L (135-145); Total Bilirubin 0.2 mg/dl (0.2-1.3); Total Protein 6.1 g/dl (6.3-8.2); Uric Acid 3.5 mg/dl (2.5-6.2); eGFR > 60.00
[2024-06-05 08:13] LABS: % Basophils 1.7 % (0-2); % Eosinophils 0.9 % (0-6); % Immature Granulocytes 3.8 % (0-0.5); % Lymphocytes 8.5 % (20.5-51.1); % Monocytes 6.9 % (1.7-9.3); % Neutrophils 78.2 % (42.2-75.2); Absolute Basophils 0.1 10^3/uL (0-0.2); Absolute Eosinophils 0.1 10^3/uL (0-0.7); Absolute Immature Granulocytes 0.2 10^3/uL (0-0.05); Absolute Lymphocytes 0.5 10^3/uL (1.2-3.4); Absolute Monocytes 0.4 10^3/uL (0.1-0.6); Hematocrit 32.6 % (37.0-47.0); Hemoglobin 10.7 g/dL (12.0-16.0); Mean Corp Hgb Conc. 32.8 g/dL (33.0-37.0); Mean Corpuscular Hgb 33.2 pg (27.0-31.0); Mean Corpuscular Volume 101.2 fL (81.0-99.0); Mean Platelet Volume 9.8 fL (7.4-10.4); Platelet Count 268 10^3/uL (130-400); Red Blood Cell Count 3.22 10^6/uL (4.20-5.40); Red Cell Dist. Width 16.1 % (11.5-14.5); White Blood Cell Count 6.4 10^3/uL (4.8-10.8)
[2024-06-05 14:57] LABS: ALT (SGPT) 21 U/L (0-35); AST (SGOT) 23 U/L (14-36); Albumin 4.5 g/dl (3.5-5.0); Alkaline Phosphatase 62 U/L (38-126); Blood Urea Nitrogen 17 mg/dl (7-17); Calcium 9.7 mg/dl (8.4-10.2); Carbon Dioxide 23 mmol/L (22-30); Chloride 105 mmol/L (98-107); Glucose 71 mg/dl (70-99); LDH 176 U/L (120-246); Potassium 4.4 mmol/L (3.5-5.1); Sodium 142 mmol/L (135-145); Total Bilirubin 0.1 mg/dl (0.2-1.3); Total Protein 6.4 g/dl (6.3-8.2); eGFR > 60.00
[2024-06-11 13:27] LABS: % Basophils 1.8 % (0-2); % Eosinophils 0.4 % (0-6); % Immature Granulocytes 0.2 % (0-0.5); % Lymphocytes 9.2 % (20.5-51.1); % Monocytes 8.2 % (1.7-9.3); % Neutrophils 80.2 % (42.2-75.2); Absolute Basophils 0.1 10^3/uL (0-0.2); Absolute Lymphocytes 0.5 10^3/uL (1.2-3.4); Absolute Monocytes 0.4 10^3/uL (0.1-0.6); Absolute Neutrophils 4.1 10^3/uL (1.4-6.5); Hematocrit 30.5 % (37.0-47.0); Mean Corp Hgb Conc. 32.8 g/dL (33.0-37.0); Mean Corpuscular Hgb 33.3 pg (27.0-31.0); Mean Corpuscular Volume 101.7 fL (81.0-99.0); Mean Platelet Volume 9.4 fL (7.4-10.4); Platelet Count 333 10^3/uL (130-400); Red Cell Dist. Width 15.4 % (11.5-14.5); White Blood Cell Count 5.1 10^3/uL (4.8-10.8)
[2024-06-11 15:51] LABS: ALT (SGPT) 25 U/L (0-35); AST (SGOT) 28 U/L (14-36); Albumin 4.6 g/dl (3.5-5.0); Alkaline Phosphatase 56 U/L (38-126); Blood Urea Nitrogen 20 mg/dl (7-17); Calcium 9.8 mg/dl (8.4-10.2); Carbon Dioxide 25 mmol/L (22-30); Chloride 101 mmol/L (98-107); Glucose 91 mg/dl (70-99); LDH 181 U/L (120-246); Phosphorus 4.4 mg/dl (2.5-4.5); Potassium 4.4 mmol/L (3.5-5.1); Sodium 137 mmol/L (135-145); Total Bilirubin 0.2 mg/dl (0.2-1.3); Total Protein 6.6 g/dl (6.3-8.2); eGFR > 60.00
[2024-06-12 08:59] VITALS: BP 108/67
[2024-06-12] MEDS: EMEND 150 MG IV (09:13)
[2024-06-12] MEDS: ALOXI 5 MG IV (09:59)
[2024-06-12] MEDS: DECADRON 51 MG IV (10:00)
[2024-06-12] MEDS: NSS 500 IV (10:51)
[2024-06-12] MEDS: ADRIAMYCIN 45 MG IV (10:52)
[2024-06-12] MEDS: ONCOVIN 52 MG IV (10:53)
[2024-06-12] MEDS: CYCLOPHOSPHAMIDE 256.75 MG IV (11:18)
[2024-06-12] MEDS: BENADRYL 50.5 MG IV (12:34)
[2024-06-12] MEDS: TYLENOL 1000 MG PO (12:54)
[2024-06-12] MEDS: [UNRECOGNIZED DRUG - OTHER] 11.7 MG SC (12:58)
[2024-06-13 13:00] VITALS: BP 105/61
[2024-06-13] MEDS: FULPHILA 6 MG SC (13:18)
[2024-06-18 14:10] LABS: % Basophils 0.1 % (0-2); % Eosinophils 0.5 % (0-6); % Immature Granulocytes 0.8 % (0-0.5); % Lymphocytes 6.8 % (20.5-51.1); % Monocytes 3.6 % (1.7-9.3); % Neutrophils 88.2 % (42.2-75.2); Absolute Immature Granulocytes 0.1 10^3/uL (0-0.05); Absolute Lymphocytes 0.5 10^3/uL (1.2-3.4); Absolute Monocytes 0.3 10^3/uL (0.1-0.6); Absolute Neutrophils 6.4 10^3/uL (1.4-6.5); Hematocrit 28.8 % (37.0-47.0); Hemoglobin 9.4 g/dL (12.0-16.0); Mean Corp Hgb Conc. 32.6 g/dL (33.0-37.0); Mean Corpuscular Hgb 33.2 pg (27.0-31.0); Mean Corpuscular Volume 101.8 fL (81.0-99.0); Mean Platelet Volume 9.7 fL (7.4-10.4); Platelet Count 232 10^3/uL (130-400); Red Blood Cell Count 2.83 10^6/uL (4.20-5.40); Red Cell Dist. Width 14.3 % (11.5-14.5); White Blood Cell Count 7.3 10^3/uL (4.8-10.8)
[2024-06-18] MEDS: NSS 1000 IV (14:12)
[2024-06-18 14:30] VITALS: BP 108/65
[2024-06-18 15:38] LABS: ALT (SGPT) 19 U/L (0-35); AST (SGOT) 16 U/L (14-36); Albumin 4.4 g/dl (3.5-5.0); Alkaline Phosphatase 83 U/L (38-126); Blood Urea Nitrogen 20 mg/dl (7-17); Calcium 9.2 mg/dl (8.4-10.2); Carbon Dioxide 26 mmol/L (22-30); Chloride 100 mmol/L (98-107); Glucose 120 mg/dl (70-99); Potassium 4.1 mmol/L (3.5-5.1); Sodium 139 mmol/L (135-145); Total Bilirubin 0.3 mg/dl (0.2-1.3); Total Protein 6.4 g/dl (6.3-8.2); eGFR > 60.00
== END 2024-06-20 23:59 | disposition home or self-care (01) ==
LOC: OID 13:37
PROVIDERS: ATTENDING PHYSICIAN Internal Medicine Hematology & Oncology
DX: R59.1 Generalized enlarged lymph nodes (principal); Z51.11 Encounter for antineoplastic chemotherapy (principal); R93.5 Abnormal findings on diagnostic imaging of other abdominal regions, including retroperitoneum; C85.18 Unspecified B-cell lymphoma, lymph nodes of multiple sites; C83.30 Diffuse large B-cell lymphoma, unspecified site; C83.33 Diffuse large B-cell lymphoma, intra-abdominal lymph nodes; C83.38 Diffuse large B-cell lymphoma, lymph nodes of multiple sites
CPT/HCPCS: 36415; 80053; 83615; 84100; 84550; 85025; 96360; 96361; 96367; 96372; 96375; 96401; 96411; 96413; J1453; J2469; J9073; J9311; Q5108

== ENCOUNTER 2024-06-26 10:21 | Outpatient (RCR) | payer SELFPAY ==
[2024-06-26 10:46] LABS: % Eosinophils 0.7 % (0-6); % Lymphocytes 6.6 % (20.5-51.1); % Monocytes 4.6 % (1.7-9.3); % Neutrophils 83.1 % (42.2-75.2); Absolute Basophils 0.1 10^3/uL (0-0.2); Absolute Eosinophils 0.1 10^3/uL (0-0.7); Absolute Immature Granulocytes 0.4 10^3/uL (0-0.05); Absolute Lymphocytes 0.6 10^3/uL (1.2-3.4); Absolute Monocytes 0.4 10^3/uL (0.1-0.6); Absolute Neutrophils 7.4 10^3/uL (1.4-6.5); Hematocrit 33.1 % (37.0-47.0); Hemoglobin 10.9 g/dL (12.0-16.0); Mean Corp Hgb Conc. 32.9 g/dL (33.0-37.0); Mean Corpuscular Hgb 33.4 pg (27.0-31.0); Mean Corpuscular Volume 101.5 fL (81.0-99.0); Mean Platelet Volume 9.9 fL (7.4-10.4); Platelet Count 252 10^3/uL (130-400); Red Blood Cell Count 3.26 10^6/uL (4.20-5.40); Red Cell Dist. Width 13.9 % (11.5-14.5); White Blood Cell Count 8.8 10^3/uL (4.8-10.8)
[2024-06-26 13:55] LABS: ALT (SGPT) 17 U/L (0-35); AST (SGOT) 20 U/L (14-36); Albumin 4.5 g/dl (3.5-5.0); Alkaline Phosphatase 69 U/L (38-126); Blood Urea Nitrogen 21 mg/dl (7-17); Calcium 9.6 mg/dl (8.4-10.2); Carbon Dioxide 24 mmol/L (22-30); Chloride 104 mmol/L (98-107); Glucose 108 mg/dl (70-99); LDH 188 U/L (120-246); Potassium 4.1 mmol/L (3.5-5.1); Sodium 142 mmol/L (135-145); Total Bilirubin 0.2 mg/dl (0.2-1.3); Total Protein 6.4 g/dl (6.3-8.2); eGFR > 60.00
== END 2024-07-20 23:59 | disposition home or self-care (01) ==
LOC: OID 10:21
PROVIDERS: ATTENDING PHYSICIAN Internal Medicine Hematology & Oncology
DX: R59.1 Generalized enlarged lymph nodes (principal); R93.5 Abnormal findings on diagnostic imaging of other abdominal regions, including retroperitoneum; C85.18 Unspecified B-cell lymphoma, lymph nodes of multiple sites; Z51.11 Encounter for antineoplastic chemotherapy; C83.38 Diffuse large B-cell lymphoma, lymph nodes of multiple sites; C83.30 Diffuse large B-cell lymphoma, unspecified site; C83.33 Diffuse large B-cell lymphoma, intra-abdominal lymph nodes
CPT/HCPCS: 80053; 83615; 85025

== ENCOUNTER 2024-08-07 09:42 | Outpatient (RCR) | payer SELFPAY ==
[2024-08-07 10:15] VITALS: BP 108/76
[2024-08-07 11:07] LABS: % Basophils 1.7 % (0-2); % Eosinophils 5.7 % (0-6); % Lymphocytes 16.1 % (20.5-51.1); % Monocytes 10.7 % (1.7-9.3); % Neutrophils 65.8 % (42.2-75.2); Absolute Basophils 0.1 10^3/uL (0-0.2); Absolute Eosinophils 0.2 10^3/uL (0-0.7); Absolute Lymphocytes 0.5 10^3/uL (1.2-3.4); Absolute Monocytes 0.3 10^3/uL (0.1-0.6); Hematocrit 34.6 % (37.0-47.0); Hemoglobin 11.7 g/dL (12.0-16.0); Mean Corp Hgb Conc. 33.8 g/dL (33.0-37.0); Mean Corpuscular Hgb 32.1 pg (27.0-31.0); Mean Corpuscular Volume 95.1 fL (81.0-99.0); Platelet Count 266 10^3/uL (130-400); Red Blood Cell Count 3.64 10^6/uL (4.20-5.40); Red Cell Dist. Width 12.3 % (11.5-14.5)
[2024-08-07 12:07] LABS: ALT (SGPT) 34 U/L (0-35); AST (SGOT) 40 U/L (14-36); Albumin 4.9 g/dl (3.5-5.0); Alkaline Phosphatase 74 U/L (38-126); Blood Urea Nitrogen 25 mg/dl (7-17); Calcium 10.1 mg/dl (8.4-10.2); Carbon Dioxide 24 mmol/L (22-30); Chloride 102 mmol/L (98-107); Glucose 91 mg/dl (70-99); LDH 196 U/L (120-246); Potassium 4.5 mmol/L (3.5-5.1); Sodium 135 mmol/L (135-145); Total Bilirubin 0.5 mg/dl (0.2-1.3); Total Protein 7.1 g/dl (6.3-8.2); eGFR > 60.00
== END 2024-08-08 11:29 | disposition home or self-care (01) ==
LOC: OID 09:42
PROVIDERS: ATTENDING PHYSICIAN Internal Medicine Hematology & Oncology
DX: R59.1 Generalized enlarged lymph nodes (principal); R93.5 Abnormal findings on diagnostic imaging of other abdominal regions, including retroperitoneum; C85.18 Unspecified B-cell lymphoma, lymph nodes of multiple sites; Z51.11 Encounter for antineoplastic chemotherapy; C83.38 Diffuse large B-cell lymphoma, lymph nodes of multiple sites; C83.30 Diffuse large B-cell lymphoma, unspecified site; C83.33 Diffuse large B-cell lymphoma, intra-abdominal lymph nodes
CPT/HCPCS: 36591; 80053; 83615; 85025

== ENCOUNTER → 2024-08-26 10:15 | Outpatient (REF) | payer SELFPAY | LOC: RAD 10:15 | PROVIDERS: ATTENDING PHYSICIAN Specialist; REFERRING PHYSICIAN Internal Medicine Hematology & Oncology | DX: N13.30 Unspecified hydronephrosis (principal) | CPT/HCPCS: 78708; A9539 ==

== ENCOUNTER → 2024-09-25 08:07 | Outpatient (REF) | payer SELFPAY | LOC: RAD 08:07 | PROVIDERS: ATTENDING PHYSICIAN Internal Medicine Hematology & Oncology | DX: C83.38 Diffuse large B-cell lymphoma, lymph nodes of multiple sites (principal); R11.2 Nausea with vomiting, unspecified; M54.50 Low back pain, unspecified; R59.1 Generalized enlarged lymph nodes | CPT/HCPCS: 71260; 74177; Q9967 ==

== ENCOUNTER 2024-10-30 13:34 | Outpatient (RCR) | payer SELFPAY ==
[2024-10-30 14:10] LABS: % Basophils 1.3 % (0-2); % Eosinophils 1.3 % (0-6); % Lymphocytes 14.1 % (20.5-51.1); % Monocytes 9.4 % (1.7-9.3); % Neutrophils 73.9 % (42.2-75.2); Absolute Basophils 0.1 10^3/uL (0-0.2); Absolute Eosinophils 0.1 10^3/uL (0-0.7); Absolute Lymphocytes 0.6 10^3/uL (1.2-3.4); Absolute Monocytes 0.4 10^3/uL (0.1-0.6); Absolute Neutrophils 3.3 10^3/uL (1.4-6.5); Hemoglobin 11.4 g/dL (12.0-16.0); Mean Corp Hgb Conc. 33.5 g/dL (33.0-37.0); Mean Corpuscular Hgb 30.2 pg (27.0-31.0); Mean Corpuscular Volume 90.2 fL (81.0-99.0); Mean Platelet Volume 9.9 fL (7.4-10.4); Platelet Count 255 10^3/uL (130-400); Red Blood Cell Count 3.77 10^6/uL (4.20-5.40); Red Cell Dist. Width 13.5 % (11.5-14.5); White Blood Cell Count 4.5 10^3/uL (4.8-10.8)
[2024-10-30 14:12] VITALS: BP 102/62
[2024-10-30 14:46] LABS: ALT (SGPT) 28 U/L (0-35); AST (SGOT) 28 U/L (14-36); Albumin 4.4 g/dl (3.5-5.0); Alkaline Phosphatase 65 U/L (38-126); Blood Urea Nitrogen 18 mg/dl (7-17); Calcium 9.7 mg/dl (8.4-10.2); Carbon Dioxide 27 mmol/L (22-30); Chloride 102 mmol/L (98-107); Glucose 100 mg/dl (70-99); LDH 200 U/L (120-246); Potassium 4.5 mmol/L (3.5-5.1); Sodium 136 mmol/L (135-145); Total Bilirubin 0.4 mg/dl (0.2-1.3); Total Protein 6.5 g/dl (6.3-8.2); eGFR > 60.00
== END 2024-10-31 12:28 | disposition home or self-care (01) ==
LOC: OID 13:34
PROVIDERS: ATTENDING PHYSICIAN Internal Medicine Hematology & Oncology
DX: C83.38 Diffuse large B-cell lymphoma, lymph nodes of multiple sites (principal); R59.1 Generalized enlarged lymph nodes; R93.5 Abnormal findings on diagnostic imaging of other abdominal regions, including retroperitoneum; C85.18 Unspecified B-cell lymphoma, lymph nodes of multiple sites; Z51.11 Encounter for antineoplastic chemotherapy
CPT/HCPCS: 36591; 80053; 83615; 85025

== ENCOUNTER → 2024-12-03 10:10 | Outpatient (REF) | payer SELFPAY | LOC: RAD 10:10 | PROVIDERS: ATTENDING PHYSICIAN Specialist | DX: N13.30 Unspecified hydronephrosis (principal) | CPT/HCPCS: 78708; A9539 ==

== ENCOUNTER → 2025-01-14 08:47 | Outpatient (REF) | payer SELFPAY | LOC: RAD 08:47 | PROVIDERS: ATTENDING PHYSICIAN Internal Medicine Hematology & Oncology; OTHER PHYSICIAN Specialist | DX: R59.1 Generalized enlarged lymph nodes (principal) | CPT/HCPCS: 71260; 74177; Q9967 ==

== ENCOUNTER 2025-01-22 13:36 | Outpatient (RCR) | payer SELFPAY ==
[2025-01-22 13:59] VITALS: BP 104/81
[2025-01-22] MEDS: CATHFLO/ACTIVASE 2 MG IV (14:37)
[2025-01-22 14:41] LABS: % Eosinophils 3.3 % (0-6); % Monocytes 10.5 % (1.7-9.3); % Neutrophils 67.2 % (42.2-75.2); Absolute Eosinophils 0.1 10^3/uL (0-0.7); Absolute Lymphocytes 0.7 10^3/uL (1.2-3.4); Absolute Monocytes 0.4 10^3/uL (0.1-0.6); Absolute Neutrophils 2.7 10^3/uL (1.4-6.5); Hematocrit 37.3 % (37.0-47.0); Hemoglobin 12.4 g/dL (12.0-16.0); Mean Corp Hgb Conc. 33.2 g/dL (33.0-37.0); Mean Corpuscular Hgb 31.4 pg (27.0-31.0); Mean Corpuscular Volume 94.4 fL (81.0-99.0); Mean Platelet Volume 9.8 fL (7.4-10.4); Platelet Count 332 10^3/uL (130-400); Red Blood Cell Count 3.95 10^6/uL (4.20-5.40); Red Cell Dist. Width 12.7 % (11.5-14.5)
[2025-01-22 15:34] LABS: ALT (SGPT) 17 U/L (0-35); AST (SGOT) 23 U/L (14-36); Albumin 4.6 g/dl (3.5-5.0); Alkaline Phosphatase 104 U/L (38-126); Blood Urea Nitrogen 18 mg/dl (7-17); Carbon Dioxide 28 mmol/L (22-30); Chloride 108 mmol/L (98-107); Glucose 86 mg/dl (70-99); LDH 189 U/L (120-246); Potassium 4.6 mmol/L (3.5-5.1); Sodium 140 mmol/L (135-145); Total Bilirubin 0.3 mg/dl (0.2-1.3); Total Protein 6.9 g/dl (6.3-8.2); eGFR > 60.00
--- NOTE | 2025-01-22 15:47 | PTCARENOTE ---
1345 - Pt here for routine Port labs. Port accessed per protocol , flushes easily but no blood return.
1430-Cathflow instilled as directed and labs drawn peripherally.
1510- Blood return obtained amari still remains sluggish. Port flushed without difficulty and de-accessed. Pt has office visit today to discuss CT scans and removal of port.
== END 2025-02-17 23:59 | disposition home or self-care (01) ==
LOC: OID 13:36
PROVIDERS: ATTENDING PHYSICIAN Internal Medicine Hematology & Oncology
DX: R59.1 Generalized enlarged lymph nodes (principal); R93.5 Abnormal findings on diagnostic imaging of other abdominal regions, including retroperitoneum; C85.18 Unspecified B-cell lymphoma, lymph nodes of multiple sites; Z51.11 Encounter for antineoplastic chemotherapy; C83.38 Diffuse large B-cell lymphoma, lymph nodes of multiple sites; C83.30 Diffuse large B-cell lymphoma, unspecified site; C83.33 Diffuse large B-cell lymphoma, intra-abdominal lymph nodes; T82.868A Thrombosis due to vascular prosthetic devices, implants and grafts, initial encounter; Y83.1 Surgical operation with implant of artificial internal device as the cause of abnormal reaction of the patient, or of later complication, without mention of misadventure at the time of the procedure
CPT/HCPCS: 80053; 83615; 85025; 96374; J2997

== ENCOUNTER → 2025-02-11 13:11 | Outpatient (REF) | payer SELFPAY ==
[2025-02-11 13:27] VITALS: BP 99/67; BP_SYST 91
[2025-02-11 14:05] VITALS: BP 106/71; BP_SYST 88
== END ==
LOC: RADI 13:11
PROVIDERS: ATTENDING PHYSICIAN Internal Medicine Hematology & Oncology
DX: Z45.2 Encounter for adjustment and management of vascular access device (principal); C83.38 Diffuse large B-cell lymphoma, lymph nodes of multiple sites
CPT/HCPCS: 36590; 77001